=== PATIENT | male | born 1990 | race Caucasian/White ===

== ENCOUNTER 2016-12-07 17:44 | Emergency (ER) | payer OTHER ==
[2016-12-07] MEDS ORDERED: PHENYTOIN SODIUM INJ 100 MG/2 ML VIAL IV ONE (17:54)
[2016-12-07] MEDS ORDERED: SODIUM CHLORIDE 0.9% 100ML 100 ML IVPB ONE (18:03)
--- NOTE | 2016-12-07 19:31 | ED.PDOC ---
History of Present Illness - General Chief Complaint: Neuro Symptoms/Deficits Stated Complaint: seizure Time Seen by Provider: 12/07/16 17:53 Source: patient, EMS notes reviewed, old records, other Exam Limitations: clinical condition - History of Present Illness Initial Comments: the patient presents due to generalized tonic-clonic seizures at the group home. He does have a history of epilepsy. I have seen him in the past. He was sent to [facility] for evaluation by neurology and they apparently changed his seizure medications over to Dilantin. He has apparently done well on that therapy until this morning when he missed his morning dose for a court appointment and started having seizures shortly after he received his second dose of the day. The patient is largely postictal upon arrival. He did have several small generalized seizures with quivering primarily to the right side also with tearing to the right side of the space and with leftward gaze of the right eye with normal gaze of the left eye. These are not new symptoms for him. No incontinence. No biting of the tongue. No head trauma. The patient has had epilepsy since a head injury several years ago. He has had difficult to control epilepsy and has been on several different medications. in total, with several stuttering seizures, he has had seizures in total for a duration of approximately 20 minutes. He is only dropped his pulse oximetry 1 time for a period of about 2 minutes. It did correct nicely with supplemental oxygen. No vomiting. Allergies/Adverse Reactions: Allergies Acetaminophen [From Tylenol] Allergy (Verified 12/07/16 18:00) Home Medications: Ambulatory Orders Ativan 10/09/16 Phenytoin Sodium Cap [Dilantin Cap] 100 mg PO Q6HR 10/09/16 Propranolol LA [Inderal LA] 80 mg PO TID 10/09/16 Sulfamethoxazole-Trimethoprim [Bactrim Ds 800-160 mg] 1 tab PO BID #28 tab 10/10 Amoxicillin [Amoxil] 500 mg PO TID #30 cap 10/29/16 Ibuprofen 800 mg PO TID PRN #30 tab 10/29/16 Review of Systems - Review of Systems Review of Systems: 12/07/16 19:31 patient was initially unable to give a review of systems due to the state. Constitutional: States: no symptoms reported EENTM: States: no symptoms reported - prior to the event Respiratory: States: no symptoms reported - prior to the event Cardiology: States: no symptoms reported - prior to the event Gastrointestinal/Abdominal: States: no symptoms reported - prior to the event Genitourinary: States: no symptoms reported - prior to the event Musculoskeletal: States: no symptoms reported - prior to the event Skin: States: no symptoms reported - prior to the event Neurological: States: see HPI, anxiety All other Systems: No Change from Baseline Past Medical History (General) - Patient Medical History Hx Seizures: Yes Hx Stroke: Yes Hx Dementia: No Hx Asthma: No Hx of COPD: No Hx Cardiac Disorders: No Hx Congestive Heart Failure: No Hx Pacemaker: No Hx Hypertension: No Hx Thyroid Disease: No Hx Diabetes: No Hx Gastroesophageal Reflux: No Hx Renal Disease: No - unknown Hx Cancer: No Hx of HIV: No Hx Hepatitis C: No Hx MRSA: No - Vaccination History Hx Tetanus, Diphtheria Vaccination: Yes Hx Influenza Vaccination: No Hx Pneumococcal Vaccination: No - Social History Hx Tobacco Use: Yes Hx Chewing Tobacco Use: No Hx Alcohol Use: No Hx Substance Use: Yes - methanphetamine Hx Substance Use Treatment: No Hx Depression: No Hx Physical Abuse: No Hx Emotional Abuse: No Hx Suspected Abuse: No - Activities of Daily Living Hospice Agency (if applicable):: None - Female History Patient is a Female of Child Bearing Age (10 -59 yrs old): No Patient : No Family Medical History - Family History Mother Family History: No Known Hx Family Asthma: Yes Hx Family Diabetes: Yes Hx Family;Other: seizures Physical Exam - Physical Exam General Appearance: Lethargic - postictal Eye Exam: bilateral normal - see history of present illness for exam during seizure Ears, Nose, Throat: hearing grossly normal - tested when patient is back to normal, normal ENT inspection Neck: non-tender, full range of motion, supple Respiratory: chest non-tender, lungs clear, normal breath sounds, no respiratory distress, no accessory muscle use Cardiovascular/Chest: normal peripheral pulses, regular rate, rhythm, no edema Peripheral Pulses: radial,right: 2+, radial,left: 2+, dorsalis pedis,right: 2+, dorsalis pedis,left: 2+ Gastrointestinal/Abdominal: non tender, soft Rectal Exam: deferred Back Exam: normal inspection Extremity: normal range of motion, non-tender, normal inspection, no pedal edema , normal capillary refill Neurologic: other - initially postictal and nonresponsive. See history of present illness for seizure activity. The patient is now alert and oriented x4. He is cooperative and pleasant. No focal neurological deficits. Skin Exam: normal color Comments: Vital Signs - 24 hr 12/07/16 12/07/16 17:47 18:26 Temperature 98.9 F Pulse Rate [ 87 77 pulse ox] Respiratory 24 18 Rate Blood Pressure 145/77 146/67 [right arm] O2 Sat by Pulse 93 L 98 Oximetry Progress - Progress Progress: 12/07/16 19:34 the patient is a 26-year-old male presenting to the emergency room and a postictal state. He did have several generalized primarily tonic type seizures while he was here. The patient received 5 mg of Valium with the ambulance. He received a gram of Dilantin IV here. He has now been without seizure for the last several hours and is conversing and interacting normally. I believe the seizure was triggered by missing his Dilantin dose. He does need to be given he has Dilantin on a very scheduled basis. He needs to keep well- hydrated. ER warnings are given for any significant recurrence. The patient will be returned to custody. - Results/Orders Results/Orders: Laboratory Tests 12/07/16 18:35 WBC 5.0 RBC 4.75 Hgb 14.5 Hct 42.7 MCV 89.9 MCH 30.6 MCHC 34.1 RDW 14.4 Plt Count 209 MPV 7.5 Absolute Neuts (auto) 2.20 Absolute Lymphs (auto) 1.80 Absolute Monos (auto) 0.80 Absolute Eos (auto) 0.20 Absolute Basos (auto) 0.00 Neutrophils % 44.8 Lymphocytes % 35.9 Monocytes % 15.2 H Eosinophils % 3.4 Basophils % 0.7 Sodium 138 Potassium 4.1 Chloride 105 Carbon Dioxide 25 Anion Gap 12.1 BUN 10 Creatinine 0.45 L BUN/Creatinine Ratio 22.2 H Random Glucose 97 Serum Osmolality 274.6 L Calcium 9.3 Magnesium 1.9 Total Bilirubin 0.4 AST 19 ALT 23 Alkaline Phosphatase 73 Serum Total Protein 7.0 Albumin 4.6 Globulin 2.4 Albumin/Globulin Ratio 1.9 Departure - Departure Clinical Impression: Epilepsy seizure, generalized, convulsive Disposition: Discharge to Home or Self Care Condition: Fair Departure Forms: ED Discharge - Pt. Copy, Patient Portal Self Enrollment Diet: regular diet Activity: increase activity as tolerated Home Medications: Ambulatory Orders Ativan 10/09/16 Phenytoin Sodium Cap [Dilantin Cap] 100 mg PO Q6HR 10/09/16 Propranolol LA [Inderal LA] 80 mg PO TID 10/09/16 Sulfamethoxazole-Trimethoprim [Bactrim Ds 800-160 mg] 1 tab PO BID #28 tab 10/10 Amoxicillin [Amoxil] 500 mg PO TID #30 cap 10/29/16 Ibuprofen 800 mg PO TID PRN #30 tab 10/29/16 Additional Instructions: the patient is a 26-year-old male presenting to the emergency room and a postictal state. He did have several generalized primarily tonic type seizures while he was here. The patient received 5 mg of Valium with the ambulance. He received a gram of Dilantin IV here. He has now been without seizure for the last several hours and is conversing and interacting normally. I believe the seizure was triggered by missing his Dilantin dose. He does need to be given he has Dilantin on a very scheduled basis. He needs to keep well- hydrated. ER warnings are given for any significant recurrence. The patient will be returned to custody.
[2016-12-07 20:00] VITALS: BP 110/70; TEMP 98.2; O2SAT 100
== END 2016-12-07 19:58 | disposition home or self-care (01) ==
LOC: ER 17:44
DX: G40.409 Other generalized epilepsy and epileptic syndromes, not intractable, without status epilepticus (principal); Z86.73 Personal history of transient ischemic attack (TIA), and cerebral infarction without residual deficits; Z79.899 Other long term (current) drug therapy; Z87.891 Personal history of nicotine dependence
CPT/HCPCS: 36415; 80053; 83735; 85025; J7050

== ENCOUNTER 2017-11-17 15:44 | Emergency (ER) | payer SELFPAY ==
[2017-11-17 15:58] VITALS: TEMP 98.1
--- NOTE | 2017-11-17 16:04 | ED.PDOC ---
History of Present Illness - General Chief Complaint: Neuro Symptoms/Deficits Stated Complaint: Multiple seizures Time Seen by Provider: 11/17/17 15:46 Source: patient, family Exam Limitations: no limitations - History of Present Illness Initial Comments: HE [facility] A TWO YEAR SENTENCE. HE IS ON KEPPRA AND ON DILANTIN. HE IS ALSO ON CELEXA AND ON ALBUTEROL MDI. TODAY HE HAS HAD ABOUT THREE SEIZURES. HE ARRIVES BY POV POST ICTAL. HE VOICES THAT HE HAS HAD A STRIKE IN THE PAST. Allergies/Adverse Reactions: Allergies Acetaminophen [From Tylenol] Allergy (Verified 11/17/17 15:48) Home Medications: Ambulatory Orders Phenytoin Sodium Cap Extended [Dilantin Cap] 300 mg PO BID 10/09/16 Citalopram Hydrobromide [CeleXA] 20 mg PO DAILY 11/17/17 Levetiracetam [Keppra] 1,000 mg PO BID 11/17/17 Review of Systems - Review of Systems Constitutional: States: other - PAINFUL LEFT SHOULDER EENTM: States: no symptoms reported Respiratory: States: no symptoms reported Cardiology: States: no symptoms reported Gastrointestinal/Abdominal: States: no symptoms reported Genitourinary: States: no symptoms reported Musculoskeletal: States: joint pain, muscle pain Skin: States: no symptoms reported Neurological: States: depressed, seizure Endocrine: States: no symptoms reported Hematologic/Lymphatic: States: no symptoms reported All other Systems: Reviewed and Negative Past Medical History (General) - Patient Medical History Hx Seizures: Yes Hx Stroke: Yes Hx Dementia: No Hx Asthma: No Hx of COPD: No Hx Cardiac Disorders: No Hx Congestive Heart Failure: No Hx Pacemaker: No Hx Hypertension: No Hx Thyroid Disease: No Hx Diabetes: No Hx Gastroesophageal Reflux: No Hx Renal Disease: No - unknown Hx Cancer: No Hx of HIV: No Hx Hepatitis C: No Hx MRSA: No - Vaccination History Hx Tetanus, Diphtheria Vaccination: Yes Hx Influenza Vaccination: No Hx Pneumococcal Vaccination: No - Social History Hx Tobacco Use: Yes Hx Chewing Tobacco Use: No Hx Alcohol Use: No Hx Substance Use: Yes - methanphetamine Hx Substance Use Treatment: No Hx Depression: No Hx Physical Abuse: No Hx Emotional Abuse: No Hx Suspected Abuse: No - Female History Patient : No Family Medical History - Family History Mother Family History: No Known Hx Family Asthma: Yes Hx Family Diabetes: Yes Hx Family;Other: seizures Physical Exam - Physical Exam General Appearance: Alert, Well Developed, Well Groomed, Other - CONFUSED Eye Exam: bilateral normal ENT Exam: normal ENT inspection, hearing grossly normal Neck: non-tender, full range of motion, supple, normal inspection Respiratory: lungs clear, normal breath sounds, no respiratory distress Cardiovascular/Chest: normal peripheral pulses, regular rate, rhythm, no edema, no gallop, no JVD, no murmur Peripheral Pulses: radial,right: 2+, radial,left: 2+ Gastrointestinal/Abdominal: normal bowel sounds, non tender, soft, no organomegaly, no pulsatile mass Back Exam: normal inspection Extremities Exam: non-tender, no evidence of injury 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 HE WAS LOADED WITH IV DILANTIN - ONE GRAM IVPB. HE ALSO TAKES KEPPRA BUT KEPPRA LEVELA ARE A SEND OUT. WILL WAIT FOR THE LEVEL. THE PATIENT SEEMS IMPROVED AND MUCH MORE ALERT. WILL TRY OUTPATIENT TREATMENT WITH DILANTIN AND KEPPRA. THE CT OF THE HEAD WAS NEGATIVE FOR ACUTE INTRACRANIAL PROCESS. Departure - Departure Clinical Impression: Seizure disorder Time of Disposition: 18:18 Disposition: Discharge to Home or Self Care Condition: Fair Departure Forms: ED Discharge - Pt. Copy, Patient Portal Self Enrollment Instructions: Seizure Disorder -- Adult Diet: resume usual diet Activity: increase activity as tolerated Home Medications: Ambulatory Orders Phenytoin Sodium Cap Extended [Dilantin Cap] 300 mg PO BID 10/09/16 Citalopram Hydrobromide [CeleXA] 20 mg PO DAILY 11/17/17 Levetiracetam [Keppra] 1,000 mg PO BID 11/17/17
[2017-11-17] MEDS ORDERED: PHENYTOIN SODIUM INJ 1,000 MG in SODIUM CHLORIDE 0.9% 100ML 100 ML IVPB ONE (16:24)
[2017-11-17] MEDS ORDERED: SODIUM CHLORIDE 0.9% 100ML 100 ML IVPB ONE (16:26)
[2017-11-17] MEDS ORDERED: PHENYTOIN SODIUM INJ 250 MG/5 ML VIAL ONE (16:26)
--- NOTE | 2017-11-17 17:01 | CT ---
EXAM: Head CLINICAL INDICATION: 27-year-old male with seizure and history of CVA. COMPARISON: Noncontrast CT brain 05/13/2016. TECHNIQUE: CT brain without contrast. This exam was performed according to our departmental dose optimization program which includes use of automated exposure control, adjustment of the mA and/or kV according to patient size and/or use of iterative reconstruction technique. FINDINGS: The ventricles, sulci, and cisterns are within normal limits. The jay-white matter differentiation is preserved. There is no mass effect, midline shift, intra- or extra-axial fluid collection/acute hemorrhage. The osseous structures are unremarkable. The paranasal sinuses and mastoid air cells are clear. IMPRESSION: No acute intracranial abnormalities. Electronically signed by: Valerie Echevarria MD 11/17/2017 5:00 PM [facility]
[2017-11-17 18:58] VITALS: BP 116/64; O2SAT 99
== END 2017-11-17 18:55 | disposition home or self-care (01) ==
LOC: ER 15:44
DX: G40.909 Epilepsy, unspecified, not intractable, without status epilepticus (principal); F17.200 Nicotine dependence, unspecified, uncomplicated; Z79.899 Other long term (current) drug therapy; Z86.73 Personal history of transient ischemic attack (TIA), and cerebral infarction without residual deficits
CPT/HCPCS: 36415; 70450; 80053; 80185; 85025; J2060; J7050

== ENCOUNTER 2017-12-30 09:30 | Emergency (ER) | payer SELFPAY ==
[2017-12-30] MEDS ORDERED: PHENYTOIN SODIUM CAP EXTENDED 100 MG CAP PO ONE (09:41)
[2017-12-30] MEDS ORDERED: LORazepam 0.5 MG TAB PO ONE (09:41)
[2017-12-30] MEDS ORDERED: levETIRAcetam 250 MG TAB PO ONE (09:46)
[2017-12-30 10:39] VITALS: BP 114/69; TEMP 98; O2SAT 97
== END 2017-12-30 10:45 | disposition home or self-care (01) ==
LOC: ER 09:30
DX: G40.909 Epilepsy, unspecified, not intractable, without status epilepticus (principal); I10 Essential (primary) hypertension; J45.909 Unspecified asthma, uncomplicated; Z79.899 Other long term (current) drug therapy

== ENCOUNTER 2018-01-06 18:53 | Emergency (ER) | payer SELFPAY ==
[2018-01-06] MEDS ORDERED: MORPHINE SULFATE INJ 10 MG/ML VIAL IM ONE (19:03)
[2018-01-06] MEDS ORDERED: ORPHENADRINE CITRATE 30 MG/ML AMP IM ONE (19:03)
--- NOTE | 2018-01-06 19:03 | ED.PDOC ---
History of Present Illness - General Chief Complaint: Back Pain or Injury Stated Complaint: back pain Time Seen by Provider: 01/06/18 18:58 Source: patient Exam Limitations: no limitations - History of Present Illness Initial Comments: Nelson Mandujano 27 y/o male stated bent over to pick stuff on the floor at home had sudden onset of sharp low backpain with radiation to both back of legs.Denies numbness,weakness,bowel or bladder dysfunction.Had ran out of his anti seizure Dilantin medication also. Timing/Duration: 1-3 hours Back Pain Location: lumbar spine Back Pain Radiation: lower legs Method of Injury/Prior Injury: other - bent over Improving Factors: rest Worsening Factors: movement Associated Symptoms: lower back pain Allergies/Adverse Reactions: Allergies Acetaminophen [From Tylenol] Allergy (Verified 01/06/18 19:14) Home Medications: Ambulatory Orders Phenytoin Sodium Cap Extended [Dilantin Cap] 300 mg PO BID 10/09/16 Citalopram Hydrobromide [CeleXA] 20 mg PO DAILY 11/17/17 Levetiracetam [Keppra] 1,000 mg PO BID 11/17/17 Methocarbamol 750 mg PO BID #14 tab 01/06/18 Phenytoin Sodium Extended 300 mg PO BID #60 cap 01/06/18 Review of Systems - Review of Systems Constitutional: States: no symptoms reported EENTM: States: no symptoms reported Respiratory: States: no symptoms reported Cardiology: States: no symptoms reported Gastrointestinal/Abdominal: States: no symptoms reported Genitourinary: States: no symptoms reported Musculoskeletal: States: back pain Neurological: States: seizure - history Past Medical History (General) - Patient Medical History Hx Seizures: Yes Hx Stroke: Yes Hx Dementia: No Hx Asthma: No Hx of COPD: No Hx Cardiac Disorders: No Hx Congestive Heart Failure: No Hx Pacemaker: No Hx Hypertension: No Hx Thyroid Disease: No Hx Diabetes: No Hx Gastroesophageal Reflux: No Hx Renal Disease: No - unknown Hx Cancer: No Hx of HIV: No Hx Hepatitis C: No Hx MRSA: No Surgical History: no surgical history - Vaccination History Hx Tetanus, Diphtheria Vaccination: Yes Hx Influenza Vaccination: No Hx Pneumococcal Vaccination: No - Social History Hx Tobacco Use: Yes Hx Chewing Tobacco Use: No Hx Alcohol Use: No Hx Substance Use: Yes - methamphetamine Hx Substance Use Treatment: No Hx Depression: No Hx Physical Abuse: No Hx Emotional Abuse: No Hx Suspected Abuse: No - Female History Patient : No Family Medical History - Family History Mother Family History: No Known Hx Family Asthma: Yes Hx Family Diabetes: Yes Hx Family;Other: seizures Physical Exam - Physical Exam General Appearance: Alert, Comfortable, No apparent distress Eyes, Ears, Nose, Throat Exam: normal ENT inspection, TMs normal, pharynx normal Neck Exam: full range of motion, normal alignment, normal inspection Cardiovascular/Respiratory: regular rate, rhythm, normal peripheral pulses, no JVD, normal breath sounds Peripheral Pulses: radial,right: 2+, radial,left: 2+ Gastrointestinal/Abdominal: normal bowel sounds, non tender, soft, other - no abdominal bruits Back Exam: no CVA tenderness, no vertebral tenderness, muscle spasm - ls spine Extremity Exam: no evidence of injury, normal range of motion, non-tender, no pedal edema Neurologic: no motor/sensory deficits, alert, oriented x 3, other - DTR-knee jerk 2 + bilaterally Skin Exam: normal color, warm/dry Progress - Progress Progress: 01/06/18 20:10 Laboratory Tests 01/06/18 19:25 Phenytoin < 0.5 L Laboratory Tests 01/06/18 19:25 Phenytoin < 0.5 L Last Vital Signs Temp 97.8 F 01/06/18 19:15 Pulse 99 H 01/06/18 19:15 Resp 22 01/06/18 19:15 BP 153/98 01/06/18 19:15 Pulse Ox 99 01/06/18 19:15 - EKG/XRAY/CT CT Ordered: Yes - L-spine -pars iterarticularis defect with slight anterolisthesis Departure - Departure Clinical Impression: Pars defect with spondylolisthesis, History of tonic-clonic seizures Back pain, acute Qualifiers: Back pain location: low back pain Back pain laterality: bilateral Sciatica presence: unspecified whether sciatica present Qualified Code(s): M54.5 - Low back pain Time of Disposition: 20:13 Disposition: Discharge to Home or Self Care Condition: Fair Departure Forms: ED Discharge - Pt. Copy, Patient Portal Self Enrollment Instructions: DI for Low Back Pain, Spondylolysis, Sacral Stress Fracture, Spondylolisthesis Prescriptions: Methocarbamol 750 mg PO BID #14 tab Phenytoin Sodium Extended 300 mg PO BID #60 cap Home Medications: Ambulatory Orders Phenytoin Sodium Cap Extended [Dilantin Cap] 300 mg PO BID 10/09/16 Citalopram Hydrobromide [CeleXA] 20 mg PO DAILY 11/17/17 Levetiracetam [Keppra] 1,000 mg PO BID 11/17/17 Methocarbamol 750 mg PO BID #14 tab 01/06/18 Phenytoin Sodium Extended 300 mg PO BID #60 cap 01/06/18 Additional Instructions: NEED TO WEAR BACK BRACE or/BACK SUPPORT for 2-4 weeks on in am off at bedtime; follow up with primary Md 01/08/2018;Continue with Ibuprofen 800 mg po tid for pain as needed
[2018-01-06] MEDS ORDERED: PHENYTOIN SODIUM CAP EXTENDED 100 MG CAP PO ONE (19:53)
--- NOTE | 2018-01-06 19:54 | CT ---
PROCEDURE: Lumbar Spine CLINICAL HISTORY: 27 years ,Male ,acute onset of lbp/bent over radiation to both legs COMPARISON: None. TECHNIQUE: Contiguous axial images obtained through the lumbar spine without IV contrast. Coronal and sagittal reformatted images obtained. This exam was performed according to our department optimization program which includes automated exposure control, adjustment of the mA and/or kv according to patient size and/or use of iterative reconstruction technique. FINDINGS: Bilateral pars defects at L5-S1. Minimal anterolisthesis at L5-S1. Minimal retrolisthesis at L4-5 which may be physiologic. No acute fractures are identified. No disc herniations are identified. No significant spinal or foraminal stenosis. IMPRESSION: Bilateral pars defects at L5-S1 with minimal anterolisthesis.. Electronically signed by: Tony Barrett MD 01/06/2018 7:53 PM [facility]
[2018-01-06 20:39] VITALS: BP 114/78; TEMP 96.9; O2SAT 97
== END 2018-01-06 20:40 | disposition home or self-care (01) ==
LOC: ER 18:53
DX: M43.17 Spondylolisthesis, lumbosacral region (principal); G40.409 Other generalized epilepsy and epileptic syndromes, not intractable, without status epilepticus; Z79.899 Other long term (current) drug therapy
CPT/HCPCS: 36415; 72131; 80185; J2270; J2360

== ENCOUNTER 2018-06-27 15:57 | Emergency (ER) | payer OTHER, SELFPAY ==
[2018-06-27] MEDS ORDERED: levETIRAcetam 250 MG TAB PO ONE ×2 (16:16→19:43)
[2018-06-27] MEDS ORDERED: PHENYTOIN SODIUM INJ 100 MG/2 ML VIAL IV ONE (16:16)
[2018-06-27] MEDS ORDERED: SODIUM CHLORIDE 0.9% 250ML 250 ML ONE (16:32)
--- NOTE | 2018-06-27 16:39 | RAD ---
EXAM DESCRIPTION: Ankle,Left 2 Views CLINICAL HISTORY: pain from injury 2 weeks ago COMPARISON: None. IMPRESSION: 2 views of the left ankle show no evidence of acute fracture, focal bone destruction or joint dislocation. Ankle mortise appears maintained and unremarkable. Soft tissues are unremarkable. Electronically signed by: Tobias Pascual MD 06/27/2018 4:38 PM CDT
--- NOTE | 2018-06-27 16:40 | RAD ---
EXAM DESCRIPTION: Foot,Left 2 Views CLINICAL HISTORY: pain from injury 2 weeks ago COMPARISON: None. IMPRESSION: 2 views of the left foot show no evidence of acute fracture, focal bone destruction, or joint dislocation. Soft tissues are unremarkable. Electronically signed by: Tobias Pascual MD 06/27/2018 4:39 PM CDT
--- NOTE | 2018-06-27 17:21 | ED.PDOC ---
History of Present Illness - General Chief Complaint: Neuro Symptoms/Deficits Time Seen by Provider: 06/27/18 16:05 Source: patient Exam Limitations: no limitations - History of Present Illness Initial Comments: The patient is a 27-year-old male presenting to the emergency room in police custody after having seizure-like activity in the back of the police car. The patient does have a history of a traumatic brain injury and reports that he has had strokes as well. I've seen him previously for seizure-like activity and have seen jeannine zaid seizures with him. Looking back over his records it seems that he has an increase in seizure-like activity when he goes into police custody. This time he reports that his significant other had gone off with his Dilantin and he has not had a dose in the week. He reports that he did not take his Keppra dose this morning. he also reports that he broke his ankle and his left foot a couple of weeks ago. He simply has a shoe and sock on that foot at this time. There is some mild swelling over the lateral malleolus. No other obvious deformities. He is alert and oriented when I see him. He has a couple of episodes of seizure-like activity lasting 2-3 minutes. He appears to have been stable for quite some time on his regimen of Keppra and Dilantin. Timing/Duration: unsure Severity: moderate Improving Factors: nothing Worsening Factors: nothing Allergies/Adverse Reactions: Allergies Acetaminophen [From Tylenol] Allergy (Verified 01/06/18 19:14) Home Medications: Ambulatory Orders Phenytoin Sodium Cap Extended [Dilantin Cap] 300 mg PO BID 10/09/16 Citalopram Hydrobromide [CeleXA] 20 mg PO DAILY 11/17/17 Levetiracetam [Keppra] 1,000 mg PO BID 11/17/17 Methocarbamol 750 mg PO BID #14 tab 01/06/18 Phenytoin Sodium Extended 300 mg PO BID #60 cap 01/06/18 Review of Systems - Review of Systems Constitutional: States: malaise EENTM: States: other - chronic visual changes. Respiratory: States: no symptoms reported Cardiology: States: no symptoms reported Gastrointestinal/Abdominal: States: no symptoms reported Genitourinary: States: no symptoms reported Musculoskeletal: States: see HPI Skin: States: no symptoms reported Neurological: States: see HPI, seizure - or seizure-like activity, tremors Endocrine: States: no symptoms reported All other Systems: No Change from Baseline Past Medical History (General) - Patient Medical History Hx Seizures: Yes Hx Stroke: No Hx Dementia: No Hx Asthma: No Hx of COPD: No Hx Cardiac Disorders: No Hx Congestive Heart Failure: No Hx Pacemaker: No Hx Hypertension: No Hx Thyroid Disease: No Hx Diabetes: No Hx Gastroesophageal Reflux: No Hx Renal Disease: No Hx Cancer: No Hx of HIV: No Hx Hepatitis C: No Hx MRSA: No - Vaccination History Hx Tetanus, Diphtheria Vaccination: Yes Hx Influenza Vaccination: Yes Hx Pneumococcal Vaccination: Yes Immunizations Up to Date: No - Social History Hx Tobacco Use: Yes Hx Chewing Tobacco Use: No Hx Alcohol Use: No Hx Substance Use: No Hx Substance Use Treatment: No Hx Depression: No Feels Threatened In Home Enviroment: No Feels Threatened In a Relationship: No Hx Physical Abuse: No Hx Emotional Abuse: No Hx Suspected Abuse: No - Activities of Daily Living Hospice Agency (if applicable):: None - Female History Patient is a Female of Child Bearing Age (10 -59 yrs old): No Patient : No Family Medical History - Family History Mother Family History: No Known Hx Family Asthma: Yes Hx Family Diabetes: Yes Hx Family;Other: seizures Physical Exam - Physical Exam General Appearance: Alert, No apparent distress Eye Exam: bilateral other - the patient does have periods of abnormal nystagmus. I have seen this before with him during a true seizure but it may be possible that he can self induce this finding at his will, given changes from his previous traumatic brain injury. Ears, Nose, Throat: normal ENT inspection Neck: non-tender, supple Respiratory: lungs clear, normal breath sounds, no respiratory distress, no accessory muscle use Cardiovascular/Chest: normal peripheral pulses, regular rate, rhythm, no edema Peripheral Pulses: radial,right: 2+, radial,left: 2+, dorsalis pedis,right: 2+, dorsalis pedis,left: 2+ Gastrointestinal/Abdominal: non tender, soft Rectal Exam: deferred Back Exam: no CVA tenderness, no vertebral tenderness Extremity: normal range of motion, no pedal edema, no calf tenderness, normal capillary refill, other - tenderness palpation over the left ankle and foot. Swelling over the lateral malleolus. No other visible or palpable deformity. No bruising. Neurologic: alert, normal mood/affect, oriented x 3, other - see above Skin Exam: normal color - multiple tattoos Comments: Vital Signs - 24 hr 06/27/18 06/27/18 06/27/18 16:08 16:17 17:00 Temperature 98.6 F Pulse Rate [ 91 H 91 H 78 Apical] Respiratory 18 18 16 Rate Blood Pressure 127/85 147/84 [Left Arm] O2 Sat by Pulse 100 100 Oximetry Progress - Progress Progress: 06/27/18 19:51 the patient's 27-year-old male brought in by police after having seizure-like activity in the back of the police cruiser. The patient does have a history of epilepsy and has missed some doses recently. He was given a dose of oral Keppra as well as IV Dilantin here. he appears to be doing well at this time. He will be written for a prescription for Keppra 1000 mg by mouth twice a day for 1 month as well as extended release phenytoin 600 mg by mouth daily. He will also be written for a Ventolin inhaler for his asthma. These are apparently his routine medications according to him. He will be released to police custody. A walking boot was placed on the left ankle for what appears to be at least a lateral ankle sprain. ER warnings were given. - Results/Orders Results/Orders: Laboratory Tests 06/27/18 06/27/18 16:18 16:18 WBC 7.8 RBC 4.87 Hgb 15.0 Hct 43.5 MCV 89.4 MCH 30.7 MCHC 34.4 RDW 13.3 Plt Count 285 MPV 8.0 Absolute Neuts (auto) 5.60 Absolute Lymphs (auto) 1.10 Absolute Monos (auto) 1.00 H Absolute Eos (auto) 0.10 Absolute Basos (auto) 0.00 Neutrophils % 71.7 Lymphocytes % 14.0 L Monocytes % 12.5 H Eosinophils % 1.4 Basophils % 0.4 Sodium 140 Potassium 3.6 Chloride 105 Carbon Dioxide 23 Anion Gap 15.6 BUN 10 Creatinine 0.87 BUN/Creatinine Ratio 11.5 Random Glucose 89 Serum Osmolality 277.9 Calcium 9.8 Magnesium 2.2 Total Bilirubin 0.6 AST 22 ALT 22 Alkaline Phosphatase 74 Serum Total Protein 8.1 Albumin 4.7 Globulin 3.4 Albumin/Globulin Ratio 1.4 x-ray of the foot and ankle shows no definitive fracture.no definite dislocation. - EKG/XRAY/CT CT Ordered: No CT Interpretation Call Back: No Departure - Departure Clinical Impression: Noncompliance Left ankle sprain Qualifiers: Encounter type: initial encounter Involved ligament of ankle: unspecified ligament Qualified Code(s): S93.402A - Sprain of unspecified ligament of left ankle, initial encounter Epilepsy Qualifiers: Epilepsy type: other generalized Disposition: Residential Condition: Fair Departure Forms: ED Discharge - Pt. Copy, Patient Portal Self Enrollment Instructions: Ankle Sprain (DC), Seizures, Adult (DC) Diet: regular diet Activity: increase activity as tolerated Home Medications: Ambulatory Orders Phenytoin Sodium Cap Extended [Dilantin Cap] 300 mg PO BID 10/09/16 Citalopram Hydrobromide [CeleXA] 20 mg PO DAILY 11/17/17 Levetiracetam [Keppra] 1,000 mg PO BID 11/17/17 Methocarbamol 750 mg PO BID #14 tab 01/06/18 Phenytoin Sodium Extended 300 mg PO BID #60 cap 01/06/18 Additional Instructions: the patient's 27-year-old male brought in by police after having seizure-like activity in the back of the police cruiser. The patient does have a history of epilepsy and has missed some doses recently. He was given a dose of oral Keppra as well as IV Dilantin here. he appears to be doing well at this time. He will be written for a prescription for Keppra 1000 mg by mouth twice a day for 1 month as well as extended release phenytoin 300 mg by mouth twice daily. He will also be written for a Ventolin inhaler for his asthma. These are apparently his routine medications according to him. He will be released to police custody. A walking boot was placed on the left ankle for what appears to be at least a lateral ankle sprain. ER warnings were given.
[2018-06-27 18:43] VITALS: O2SAT 100
[2018-06-27 19:28] VITALS: TEMP 97.8
[2018-06-27 20:13] VITALS: BP 122/78
== END 2018-06-27 20:13 ==
LOC: ER 15:57
DX: G40.409 Other generalized epilepsy and epileptic syndromes, not intractable, without status epilepticus (principal); S93.402A Sprain of unspecified ligament of left ankle, initial encounter; Z87.820 Personal history of traumatic brain injury; Z79.899 Other long term (current) drug therapy; X58.XXXA Exposure to other specified factors, initial encounter; Y92.9 Unspecified place or not applicable
CPT/HCPCS: 36415; 73600; 73620; 80053; 83735; 85025; J7050

== ENCOUNTER 2018-07-04 10:00 | Emergency (ER) | payer OTHER ==
[2018-07-04] MEDS ORDERED: traMADol HCL 50 MG TAB PO ONE (10:57)
[2018-07-04] MEDS ORDERED: KETOROLAC TROMETHAMINE INJ 60 MG/2 ML VIAL IM ONE (10:57)
--- NOTE | 2018-07-04 11:01 | RAD ---
EXAM DESCRIPTION: Ankle,Left 3 Views CLINICAL HISTORY: 27 years, Male, FALL COMPARISON: June 27, 2018 TECHNIQUE: AP/lateral/oblique of the ankle FINDINGS: Three views of the ankle demonstrate the mortise well-maintained. No fracture or dislocation is seen in the bones are normally mineralized. No significant degenerative changes noted. IMPRESSION: 1. Negative left ankle three views. Electronically signed by: Yadiel Parham MD 07/04/2018 11:00 AM CDT
--- NOTE | 2018-07-04 11:02 | RAD ---
EXAM DESCRIPTION: Knee,Left Complete CLINICAL HISTORY: 27 years, Male, FALL COMPARISON: None TECHNIQUE: Three views of the left knee FINDINGS: The knee is normally aligned and mineralized. No fracture or deformity or destructive process is seen. No effusion or mass or foreign body is noted. Mild degenerative changes are evident. IMPRESSION: 1. Normal left knee three views. Electronically signed by: Yadiel Parham MD 07/04/2018 11:01 AM CDT
--- NOTE | 2018-07-04 11:02 | ED.PDOC ---
History of Present Illness - General Chief Complaint: Lower Extremity Injury Stated Complaint: L lower leg Time Seen by Provider: 07/04/18 10:16 Source: patient - History of Present Illness Initial Comments: PT BROUGHT TO THE ED FROM [facility] FOR FALL ONTO LEFT KNEE. PT WAS WEARING A WALKING BOOT DUE TO AN ANKLE SPRAIN LAST WEEK AND TRIPPED STRIKING HIS KNEECAP ON THE GROUND. Occurred: just prior to arrival Pain - Lower Extremity: moderate: Left Ankle, severe: Left Knee Method of Injury: fell Improving Factors: immobilization, rest Worsening Factors: movement Allergies/Adverse Reactions: Allergies Acetaminophen [From Tylenol] Allergy (Verified 07/04/18 10:14) Anaphylaxis Home Medications: Ambulatory Orders Phenytoin Sodium Cap Extended [Dilantin Cap] 300 mg PO BID 10/09/16 Citalopram Hydrobromide [CeleXA] 20 mg PO DAILY 11/17/17 Levetiracetam [Keppra] 1,000 mg PO BID 11/17/17 Tramadol HCl [Conzip] 100 mg PO Q6HR PRN #24 cap 07/04/18 Review of Systems - Review of Systems Constitutional: Denies: chills, fever EENTM: Denies: ear pain, nose congestion Respiratory: Denies: cough, short of breath Cardiology: Denies: chest pain, palpitations Musculoskeletal: States: joint pain, joint swelling Past Medical History (General) - Patient Medical History Hx Seizures: Yes Hx Stroke: Yes - CVA x 2, last episode in 2017 Hx Dementia: No Hx Asthma: No Hx of COPD: No Hx Cardiac Disorders: No Hx Congestive Heart Failure: No Hx Pacemaker: No Hx Hypertension: No Hx Thyroid Disease: No Hx Diabetes: No Hx Gastroesophageal Reflux: No Hx Renal Disease: No Hx Cancer: No Hx of HIV: No Hx Hepatitis C: No Hx MRSA: No Surgical History: no surgical history - Vaccination History Hx Tetanus, Diphtheria Vaccination: Yes Hx Influenza Vaccination: Yes - 2017 Hx Pneumococcal Vaccination: Yes - 2016 - Social History Hx Tobacco Use: Yes Hx Chewing Tobacco Use: No Hx Alcohol Use: No Hx Substance Use: No Hx Substance Use Treatment: No Hx Depression: No Hx Physical Abuse: No Hx Emotional Abuse: No Hx Suspected Abuse: No - Female History Patient : No Family Medical History - Family History Mother Family History: No Known Hx Family Asthma: Yes Hx Family Diabetes: Yes Hx Family;Other: seizures Physical Exam - Physical Exam General Appearance: Alert, No apparent distress Eyes, Ears, Nose, Throat: normal ENT inspection Neck: normal inspection Cardiovascular/Respiratory: no respiratory distress Thigh/Hip: normal inspection, non-tender, no evidence of injury Leg: normal inspection, non-tender, no evidence of injury Knee: bone tenderness - OVER PATELLA, limited ROM - DUE TO PAIN, soft tissue tenderness - ALONG THE MEDIAL ASPECT OF KNEE Ankle: soft tissue tenderness - ALONG THE LATERAL ASPECT OF ANKLE, swelling Foot: normal inspection, non-tender, no evidence of injury Neuro/Tendon: normal sensation, normal motor functions, normal tendon functions , responds to pain Mental Status: alert, oriented x 3 Skin: normal color, warm/dry Progress - Progress Progress: 07/04/18 11:11 XRAY FIND[address]CUSS[address]. WILL PL[address] PT IN MG WRAP FOR KNEE IMMOBILIZATION SINCE PT IS ALREADY WEARING A WALKING BOOT. - EKG/XRAY/CT XRAY: knee - NEGATIVE PER RAD - Additional EKG/XRAY/Consults XRAY #2: ankle - NEGATIVE PER RAD Departure - Departure Clinical Impression: Sprain of knee, Sprain of left ankle or foot, Fall from ground level Disposition: Residential Condition: Good Departure Forms: ED Discharge - Pt. Copy, Patient Portal Self Enrollment Instructions: Knee Sprain (DC) Prescriptions: Tramadol HCl [Conzip] 100 mg PO Q6HR PRN #24 cap PRN Reason: Pain Home Medications: Ambulatory Orders Phenytoin Sodium Cap Extended [Dilantin Cap] 300 mg PO BID 10/09/16 Citalopram Hydrobromide [CeleXA] 20 mg PO DAILY 11/17/17 Levetiracetam [Keppra] 1,000 mg PO BID 11/17/17 Tramadol HCl [Conzip] 100 mg PO Q6HR PRN #24 cap 07/04/18
[2018-07-04 11:23] VITALS: O2SAT 100
[2018-07-04 11:35] VITALS: BP 116/79; TEMP 98.2
== END 2018-07-04 11:32 ==
LOC: ER 10:00
DX: S83.92XA Sprain of unspecified site of left knee, initial encounter (principal); S93.402A Sprain of unspecified ligament of left ankle, initial encounter; Z86.73 Personal history of transient ischemic attack (TIA), and cerebral infarction without residual deficits; Z87.891 Personal history of nicotine dependence; W01.0XXA Fall on same level from slipping, tripping and stumbling without subsequent striking against object, initial encounter; Y92.149 Unspecified place in prison as the place of occurrence of the external cause; Z88.6 Allergy status to analgesic agent
CPT/HCPCS: 73562; 73610; J1885

== ENCOUNTER 2018-09-25 15:12 | Emergency (ER) | payer OTHER ==
--- NOTE | 2018-09-25 15:54 | ED.PDOC ---
History of Present Illness - General Chief Complaint: Cardiovascular Problem Stated Complaint: L lower leg extremity swelling/discomfort/coolness Time Seen by Provider: 09/25/18 15:50 Source: patient Exam Limitations: no limitations - History of Present Illness Initial Comments: Patient presents with left foot swelling for "100 days". He says that he has not had any traumas to the left leg. No history of DVT. He said that 3 months ago he went to an OSH and was told he had a "sprain". He says that there is pain at the "instep" of his foot that extends to the toes. He says that the toes have decreased sensation. Pain is constant, worse with movement, better with rest. No other complaints. Timing/Duration: other - 100 days Severity: moderate Improving Factors: nothing Worsening Factors: nothing Associated Symptoms: denies symptoms Allergies/Adverse Reactions: Allergies Acetaminophen [From Tylenol] Allergy (Verified 09/25/18 15:51) Anaphylaxis Home Medications: Ambulatory Orders Phenytoin Sodium Cap Extended [Dilantin Cap] 300 mg PO BID 10/09/16 Citalopram Hydrobromide [CeleXA] 20 mg PO DAILY 11/17/17 Levetiracetam [Keppra] 1,000 mg PO BID 11/17/17 Past Medical History (General) - Patient Medical History Hx Seizures: Yes Hx Stroke: Yes - 2016 Hx Dementia: No Hx Asthma: No Hx of COPD: No Hx Cardiac Disorders: No Hx Congestive Heart Failure: No Hx Pacemaker: No Hx Hypertension: No Hx Thyroid Disease: No Hx Diabetes: No Hx Gastroesophageal Reflux: No Hx Renal Disease: No Hx Cancer: No Hx of HIV: No Hx Hepatitis C: No Hx MRSA: No Surgical History: no surgical history - Vaccination History Hx Tetanus, Diphtheria Vaccination: Yes Hx Influenza Vaccination: No Hx Pneumococcal Vaccination: No - Social History Hx Tobacco Use: Yes Hx Chewing Tobacco Use: No Hx Alcohol Use: No Hx Substance Use: No Hx Substance Use Treatment: No Hx Depression: No Hx Physical Abuse: No Hx Emotional Abuse: No Hx Suspected Abuse: No - Female History Patient : No Family Medical History - Family History Mother Family History: No Known Hx Family Asthma: Yes Hx Family Diabetes: Yes Hx Family;Other: seizures Physical Exam - Physical Exam General Appearance: Alert Eye Exam: bilateral normal Ears, Nose, Throat: hearing grossly normal, normal ENT inspection Neck: non-tender, full range of motion, supple Respiratory: lungs clear, normal breath sounds Cardiovascular/Chest: regular rate, rhythm, other - 2+ non-pitting edema in the left foot from the toes to the ankle. Peripheral Pulses: dorsalis pedis,right: 1+, dorsalis pedis,left: 0 - too swollen for a good exam, posterior tibialis,right: 2+, posterior tibialis,left: 2+ Gastrointestinal/Abdominal: normal bowel sounds, non tender, soft Back Exam: normal inspection, no CVA tenderness Extremity: pedal edema, other - TTP over the dorsal surface of the left foot. Toes mildly TTP. Capillary refill less than two seconds at the nailbeds. Patient has full sensation througth the entire left foot and toes. No cyanosis. Neurologic: no motor/sensory deficits, alert, normal mood/affect, oriented x 3 Skin Exam: normal color Lymphatic: no adenopathy Progress - Progress Progress: 09/25/18 18:46 Laboratory Tests 09/25/18 09/25/18 09/25/18 16:00 16:00 16:00 WBC 7.6 RBC 4.72 Hgb 14.8 Hct 43.6 MCV 92.5 MCH 31.3 H MCHC 33.8 RDW 13.7 Plt Count 234 MPV 7.7 Absolute Neuts (auto) 4.90 Absolute Lymphs (auto) 1.70 Absolute Monos (auto) 0.90 H Absolute Eos (auto) 0.10 Absolute Basos (auto) 0.00 Neutrophils % 64.5 Lymphocytes % 21.7 Monocytes % 11.5 H Eosinophils % 1.8 Basophils % 0.5 Sodium 140 Potassium 4.2 Chloride 102 Carbon Dioxide 30 Anion Gap 12.2 BUN 12 Creatinine 0.76 BUN/Creatinine Ratio 15.8 Random Glucose 83 Serum Osmolality 278.3 Uric Acid 3.2 Calcium 9.4 Total Bilirubin 0.4 AST 17 ALT 19 Alkaline Phosphatase 65 B-Natriuretic Peptide 11.1 Serum Total Protein 7.3 Albumin 4.7 Globulin 2.6 Albumin/Globulin Ratio 1.8 Urine Color Urine Appearance Urine pH Ur Specific [place] Urine Protein Urine Glucose (UA) Urine Ketones Urine Blood Urine Nitrite Urine Bilirubin Urine Urobilinogen Ur Leukocyte Esterase Urine RBC Urine WBC Ur Epithelial Cells Amorphous Sediment Urine Bacteria 09/25/18 17:30 WBC RBC Hgb Hct MCV MCH MCHC RDW Plt Count MPV Absolute Neuts (auto) Absolute Lymphs (auto) Absolute Monos (auto) Absolute Eos (auto) Absolute Basos (auto) Neutrophils % Lymphocytes % Monocytes % Eosinophils % Basophils % Sodium Potassium Chloride Carbon Dioxide Anion Gap BUN Creatinine BUN/Creatinine Ratio Random Glucose Serum Osmolality Uric Acid Calcium Total Bilirubin AST ALT Alkaline Phosphatase B-Natriuretic Peptide Serum Total Protein Albumin Globulin Albumin/Globulin Ratio Urine Color Yellow Urine Appearance Cloudy Urine pH 8.5 H Ur Specific [place] 1.015 Urine Protein Negative Urine Glucose (UA) Negative Urine Ketones Negative Urine Blood Negative Urine Nitrite Negative Urine Bilirubin Negative Urine Urobilinogen 0.2 Ur Leukocyte Esterase Negative Urine RBC 0 Urine WBC 0 Ur Epithelial Cells 0 Amorphous Sediment 4+ Urine Bacteria 0 There is not apparent metabolic reason for the left ankle swelling. LE venous Doppler showed no DVT. Radiographs of the left ankle and foot were normal. I spoke with Dr. Jama and it was mutually agreed that there was not a limb- threatening condition in progress and the fact that this has been going on for 100 days indicates that there is time to explore an etiology on an outpatient basis. The patient was instructed to see Dr. Tijerina. Departure - Departure Clinical Impression: Edema of left ankle Disposition: Discharge to Home or Self Care Condition: Good Departure Forms: ED Discharge - Pt. Copy, Patient Portal Self Enrollment Instructions: DI for Chest Pain Diet: resume usual diet Activity: increase activity as tolerated Home Medications: Ambulatory Orders Phenytoin Sodium Cap Extended [Dilantin Cap] 300 mg PO BID 10/09/16 Citalopram Hydrobromide [CeleXA] 20 mg PO DAILY 11/17/17 Levetiracetam [Keppra] 1,000 mg PO BID 11/17/17 Additional Instructions: Use MG wrap in the left ankle for three days. Elevate it on a pillow at night. See Dr. Tijerina in the next three days for further instructions.
--- NOTE | 2018-09-25 17:08 | RAD ---
EXAM DESCRIPTION: Foot, left 3 Views CLINICAL HISTORY: 28 years Male edema and pain COMPARISON: None. TECHNIQUE: Three views of the left foot. FINDINGS: No acute fractures or dislocations are identified. No osseous destructive lesions. Soft tissue swelling around the foot. IMPRESSION: No acute fracture is identified. There is soft tissue swelling around the foot. Electronically signed by: Tony Barrett MD 09/25/2018 5:07 PM CDT
--- NOTE | 2018-09-25 17:09 | US ---
EXAM DESCRIPTION: Venous, lower Extremity LT CLINICAL HISTORY: 28 years Male Swelling, pain, cold COMPARISON: None. TECHNIQUE: Duplex imaging performed to evaluate the left lower extremity venous structures. Compression imaging and augmentation imaging performed. The common femoral, superficial femoral, popliteal, greater saphenous and posterior tibial veins were examined. FINDINGS: No thrombus is identified in the left lower extremity venous structures. There is edema visualized in the lower leg. IMPRESSION: No DVT is identified in the left lower extremity. Electronically signed by: Tony Barrett MD 09/25/2018 5:07 PM CDT
[2018-09-25 19:02] VITALS: O2SAT 100
[2018-09-25 19:04] VITALS: BP 134/79; TEMP 98
== END 2018-09-25 18:59 | disposition home or self-care (01) ==
LOC: ER 15:12
DX: R60.0 Localized edema (principal); Z86.73 Personal history of transient ischemic attack (TIA), and cerebral infarction without residual deficits; Z87.891 Personal history of nicotine dependence; Z79.899 Other long term (current) drug therapy

== ENCOUNTER 2018-10-08 20:32 | Emergency (ER) | payer SELFPAY ==
[2018-10-08 20:50] VITALS: BP 160/104; TEMP 96.5; O2SAT 100
--- NOTE | 2018-10-08 21:07 | ED.PDOC ---
History of Present Illness - General Chief Complaint: Lower Extremity Injury Stated Complaint: Left lower leg swelling Time Seen by Provider: 10/08/18 20:42 Source: patient Exam Limitations: no limitations - History of Present Illness Initial Comments: The patient is a 28-year-old male presenting to the emergency room secondary to persistent left lower extremity edema area and the patient apparently injured his leg around 4 months ago and has had some swelling since then. He actually had a very good workup here 2 weeks ago including blood work , x-ray and a lower extremity venous ultrasound. All were appropriate. He is neurovascularly intact. On further questioning it actually appears that the patient has been wrapping his knee circumferentially with an Joe wrap for about 18 hours out of each day. He has not been wrapping below it. Timing/Duration: unsure Severity: mild Improving Factors: nothing Worsening Factors: nothing Associated Symptoms: denies symptoms Allergies/Adverse Reactions: Allergies Acetaminophen [From Tylenol] Allergy (Verified 10/08/18 20:50) Anaphylaxis Home Medications: Ambulatory Orders Phenytoin Sodium Cap Extended [Dilantin Cap] 1,000 mg PO BID 10/09/16 Levetiracetam [Keppra] 1,000 mg PO BID 11/17/17 Review of Systems - Review of Systems Constitutional: States: no symptoms reported EENTM: States: no symptoms reported Respiratory: States: no symptoms reported Cardiology: States: no symptoms reported Gastrointestinal/Abdominal: States: no symptoms reported Genitourinary: States: no symptoms reported Musculoskeletal: States: see HPI Skin: States: see HPI Neurological: States: no symptoms reported Endocrine: States: no symptoms reported All other Systems: No Change from Baseline Past Medical History (General) - Patient Medical History Hx Seizures: Yes Hx Stroke: Yes - 2016 Hx Dementia: No Hx Asthma: No Hx of COPD: No Hx Cardiac Disorders: No Hx Congestive Heart Failure: No Hx Pacemaker: No Hx Hypertension: No Hx Thyroid Disease: No Hx Diabetes: No Hx Gastroesophageal Reflux: No Hx Renal Disease: No Hx Cancer: No Hx of HIV: No Hx Hepatitis C: No Hx MRSA: No Surgical History: no surgical history - Vaccination History Hx Tetanus, Diphtheria Vaccination: Yes Hx Influenza Vaccination: No Hx Pneumococcal Vaccination: No - Social History Hx Tobacco Use: Yes Hx Chewing Tobacco Use: No Hx Alcohol Use: No Hx Substance Use: No Hx Substance Use Treatment: No Hx Depression: No Hx Physical Abuse: No Hx Emotional Abuse: No Hx Suspected Abuse: No - Female History Patient : No Family Medical History - Family History Mother Family History: No Known Hx Family Asthma: Yes Hx Family Diabetes: Yes Hx Family;Other: seizures Physical Exam - Physical Exam General Appearance: Alert, Comfortable, No apparent distress Eye Exam: bilateral normal Ears, Nose, Throat: hearing grossly normal Neck: full range of motion, supple Respiratory: no respiratory distress, no accessory muscle use Cardiovascular/Chest: normal peripheral pulses, regular rate, rhythm Peripheral Pulses: dorsalis pedis,right: 2+, dorsalis pedis,left: 2+, posterior tibialis,right: 2+, posterior tibialis,left: 2+ Rectal Exam: deferred Back Exam: no vertebral tenderness Extremity: normal range of motion, normal capillary refill, pedal edema - see history of present illness Neurologic: phonograph mechanic II-XII nml as tested, no motor/sensory deficits, alert, normal mood/affect, oriented x 3 Skin Exam: normal color Comments: Vital Signs - 24 hr 10/08/18 20:38 Temperature 96.5 F L Pulse Rate [ 92 H monitor] Respiratory 22 Rate Blood Pressure 160/104 [Left Arm] O2 Sat by Pulse 100 Oximetry Progress - Progress Progress: 10/08/18 21:08 the patient is a 28-year-old male presenting secondary to left lower extremity edema. it appears that the patient has been wrapping his knee frequently with an Joe wrap. He has developed significant swelling below that area due to the circumferential wrapping. He has been instructed to start wrapping with an Joe wrap at the toe up to the knee if he is going to use them. He had a very good workup 2 weeks ago including x-ray, venous ultrasound and lab work showing no other significant etiology. he does need to start doing range of motion exercises with his knee ankle and foot. He can also start strengthening as he does have significant atrophy from not using them much for the last few months. This will help with draining the fluid as well. No evidence of cellulitis. DVT was ruled out 2 weeks ago. ER warnings were given. Keep follow-up with primary care doctor. Departure - Departure Clinical Impression: Edema of lower extremity Disposition: Discharge to Home or Self Care Condition: Fair Departure Forms: ED Discharge - Pt. Copy, Patient Portal Self Enrollment Instructions: DI for Leg Pain Diet: regular diet Activity: increase activity as tolerated Home Medications: Ambulatory Orders Phenytoin Sodium Cap Extended [Dilantin Cap] 1,000 mg PO BID 10/09/16 Levetiracetam [Keppra] 1,000 mg PO BID 11/17/17 Additional Instructions: the patient is a 28-year-old male presenting secondary to left lower extremity edema. it appears that the patient has been wrapping his knee frequently with an Joe wrap. He has developed significant swelling below that area due to the circumferential wrapping. He has been instructed to start wrapping with an Joe wrap at the toe up to the knee if he is going to use them. He had a very good workup 2 weeks ago including x-ray, venous ultrasound and lab work showing no other significant etiology. he does need to start doing range of motion exercises with his knee ankle and foot. He can also start strengthening as he does have significant atrophy from not using them much for the last few months. This will help with draining the fluid as well. No evidence of cellulitis. DVT was ruled out 2 weeks ago. ER warnings were given. Keep follow-up with primary care doctor.
[2018-10-08] MEDS ORDERED: ACETAMINOPHEN-CAFF-BUTALBITAL 1 EA TAB PO ONE (21:10)
== END 2018-10-08 21:26 | disposition home or self-care (01) ==
LOC: ER 20:32
DX: R60.0 Localized edema (principal); Z79.899 Other long term (current) drug therapy; Z88.6 Allergy status to analgesic agent; Z86.73 Personal history of transient ischemic attack (TIA), and cerebral infarction without residual deficits; Z87.891 Personal history of nicotine dependence